=== PATIENT | female | born 1970 | race Caucasian/White ===

== ENCOUNTER → 2017-10-19 | Outpatient (CLI) | payer BC ==
[~2017-10-19] MED LIST: EFFEXOR 75M75 MG/TAB PO; PREDNISONE20 MG PO; PREVACID 30MG30 M1 PO; PRINIVIL2.5 MG PO; PROAIR HFA0.09 MG/AC IH; ZITHROMAX Z PA250 MG PO
== END ==
LOC: MC.RAD 12:44
DX: Z12.31 Encounter for screening mammogram for malignant neoplasm of breast (principal)

== ENCOUNTER → 2017-12-29 | Outpatient (CLI) | payer BC ==
[2017-12-28 13:29] VITALS: BP 109/72; PULSE 61
[~2017-12-29] VITALS: Ht 177.8 cm; Wt 93.6 kg
[~2017-12-29] MED LIST changes: +CALCIUM 600MG+D1 TAB PO; +MULTI VITAMINS1 TAB PO; +ULTRAM 50MG TAB50 MG PO
[2017-12-29 12:27] VITALS: BP 112/95; PULSE 103
[2017-12-29 13:09] VITALS: BP 115/72; PULSE 95
== END ==
LOC: COL.RAD 12:06
DX: M51.26 Other intervertebral disc displacement, lumbar region (principal)
CPT/HCPCS: J3301

== ENCOUNTER → 2018-02-24 | Outpatient (CLI) | payer BC ==
[~2018-02-24] VITALS: Ht 177.8 cm; Wt 96.4 kg
[2018-02-24 14:17] VITALS: BP 124/80; PULSE 70
[2018-02-24 15:27] VITALS: BP 125/88; PULSE 70
== END ==
LOC: COL.RAD 13:30
DX: M54.42 Lumbago with sciatica, left side (principal)
CPT/HCPCS: J3301

== ENCOUNTER → 2018-06-23 | Outpatient (CLI) | payer BC ==
[~2018-06-23] VITALS: Ht 177.8 cm; Wt 97.8 kg
[2018-06-23 12:48] VITALS: BP 138/86; PULSE 77
[2018-06-23 13:15] VITALS: BP 127/86; PULSE 79
== END ==
LOC: COL.RAD 12:22
DX: M48.061 Spinal stenosis, lumbar region without neurogenic claudication (principal); M51.16 Intervertebral disc disorders with radiculopathy, lumbar region
CPT/HCPCS: J3301

== ENCOUNTER → 2018-10-26 | Outpatient (CLI) | payer BC | LOC: MC.RAD 15:32 | DX: Z12.31 Encounter for screening mammogram for malignant neoplasm of breast (principal) ==

== ENCOUNTER → 2019-03-05 | Outpatient (CLI) | payer BC | LOC: COL.RAD 12:30 | DX: M51.17 Intervertebral disc disorders with radiculopathy, lumbosacral region (principal); M47.816 Spondylosis without myelopathy or radiculopathy, lumbar region ==

== ENCOUNTER → 2019-08-31 | Outpatient (CLI) | payer BC | LOC: COL.RAD 11:53 | DX: M51.26 Other intervertebral disc displacement, lumbar region (principal); Z98.1 Arthrodesis status | CPT/HCPCS: A9585 ==

== ENCOUNTER → 2019-11-02 | Outpatient (CLI) | payer BC | LOC: MC.RAD 13:24 | DX: Z12.31 Encounter for screening mammogram for malignant neoplasm of breast (principal); N64.89 Other specified disorders of breast ==

== ENCOUNTER → 2019-11-08 | Outpatient (CLI) | payer BC | LOC: MC.RAD 13:00 | DX: N64.89 Other specified disorders of breast (principal) | CPT/HCPCS: G0279 ==

== ENCOUNTER → 2020-11-12 | Outpatient (CLI) | payer BC | LOC: MC.RAD 11:26 | DX: Z12.31 Encounter for screening mammogram for malignant neoplasm of breast (principal) ==

== ENCOUNTER → 2022-01-18 | Outpatient (CLI) | payer BC | LOC: MC.RAD 11:37 | DX: Z12.31 Encounter for screening mammogram for malignant neoplasm of breast (principal) ==